=== PATIENT | male | born 2000 ===

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

== ENCOUNTER 2022-02-07 13:46 | Emergency (ER) | payer MEDICAID, SELFPAY ==
--- NOTE | ~2022-02-07 | XR_ITS ---
EXAMINATION: XR CHEST CLINICAL INFORMATION: Cough COMPARISON: None TECHNIQUE: 2 views of the chest were obtained. FINDINGS: The lungs are clear. No airspace consolidation, pleural effusion, or pneumothorax. The cardiomediastinal silhouette is within normal limits. No acute osseous injury. XR/XR chest 2V IMPRESSION: No acute pulmonary process.
[2022-02-07 13:50] VITALS: BP 153/88; PULSE 108; RESP 18; TEMP 37.2; O2SAT 100; BMI 30.2
--- NOTE | 2022-02-07 13:50 | ED.URI ---
HPI - URI/Sore Throat General Chief Complaint: Upper Respiratory Symptoms <QAMAR Silvestre Last Filed: 02/07/22 13:52> Stated Complaint: Cough, Headache <QAMAR Silvestre Last Filed: 02/07/22 13:52> Time Seen by Provider: 02/07/22 14:23 <QAMAR Silvestre Last Filed: 02/07/22 13:52> History of Present Illness HPI Narrative: patient complains of a mild dry cough a headache runny nose some congestion, may have had some wheezing yesterday but no shortness of breath today and he does have an inhaler at home if his asthma does act up Right now is no chest pain no shortness of breath no vomiting <QAMAR Taylor Last Filed: 02/08/22 12:03> Related Data Allergies/Adverse Reactions: Allergies Allergy/AdvReac Type Severity Reaction Status Date / Time No Known Allergies Allergy Verified 02/07/22 13:50 <QAMAR Silvestre Last Filed: 02/07/22 13:52> Review of Systems Review of Systems: positive for dry cough and runny nose Negatives are no fever no chills no confusion no fainting no feeling faint no headache no stiff neck no difficulty breathing or swallowing no chest pain no shortness of breath no sputum no abdominal pain no nausea vomiting or diarrhea no rash <QAMAR Taylor Last Filed: 02/08/22 12:03> Yes all other systems are reviewed and are negative <QAMAR Taylor Last Filed: 02/08/22 12:03> [facility] Past Medical History Source: nursing notes reviewed <QAMAR Taylor Last Filed: 02/08/22 12:03> Social History Social History: Social History Advance Directives: No Advance Directives Information Provided: No <QAMAR Silvestre Last Filed: 02/07/22 13:52> Physical Exam Vital Signs: Vital Signs: Last Vital Signs Temp 98.9 F 02/07/22 13:50 Pulse 108 H 02/07/22 13:50 Resp 18 02/07/22 13:50 BP 153/88 H 02/07/22 13:50 Pulse Ox 100 02/07/22 13:50 O2 Del Method 02/07/22 13:50 BMI result Body Mass Index 30.2 <QAMAR Silvestre - Last Filed: 02/07/22 13:52> Vital Signs: Last Vital Signs Temp 98.9 F 02/07/22 13:50 Pulse 108 H 02/07/22 13:50 Resp 18 02/07/22 13:50 BP 153/88 H 02/07/22 13:50 Pulse Ox 100 02/07/22 13:50 O2 Del Method 02/07/22 13:50 BMI result Body Mass Index 30.2 <QAMAR Taylor - Last Filed: 02/08/22 12:03> general appearance no distress Eyes no redness or discharge The sinuses nontender Pharynx no redness swelling or exudate membranes are moist Neck is supple Chest clear to auscultation bilateral Heart no murmur Abdomen soft nontender Extremities range of motion x4 Skin no rash Neuro gait and balance are normal, interaction expression and comprehension are normal cranial nerves 2-12 intact as tested motor 5/5 x4, sensation intact and symmetrical, cerebellar exam is normal <QAMAR Taylor - Last Filed: 02/08/22 12:03> Course Course Course Narrative: E- 13:51 - 21yoM c PMHx of asthma presenting to the ED with URIs complaints that started yesterday which includes intermittent headaches, generalized fatigue/malaise, sore throat cough and wheezing. Denies any other symptoms complaints or concerns at this time. Denies recent travel or sick contacts. Plan: Patient is stable. He will be sent back to the waiting room. COVID and influenza swab along with strep ordered at this time. <QAMAR Silvestre - Last Filed: 02/07/22 13:52> RME- 13:51 - 21yoM c PMHx of asthma presenting to the ED with URIs complaints that started yesterday which includes intermittent headaches, generalized fatigue/malaise, sore throat cough and wheezing. Denies any other symptoms complaints or concerns at this time. Denies recent travel or sick contacts. Plan: Patient is stable. He will be sent back to the waiting room. COVID and influenza swab along with strep ordered at this time. Strep test negative, COVID test negative, flu test negative, chest x-ray was normal At this time the patient has no shortness of breath and was comfortable throughout ER visit and is discharge diagnosis viral syndrome <QAMAR Taylor Last Filed: 02/08/22 12:03> Medical Decision Making Lab Data Labs: Lab Results 02/07/22 02/07/22 02/07/22 Range/Units 14:22 14:22 14:22 COVID-19 (ZEUS) Negative (Negative) COVID-19 Clin Com See Note Influenza Type A (BRIAN) Negative (Negative) Influenza Type B (BRIAN) Negative (Negative) Influenza A & B Note See Note S. pyogenes GrpA BRIAN Negative (Negative) <QAMAR Silvestre - Last Filed: 02/07/22 13:52> Lab Results 02/07/22 02/07/22 02/07/22 Range/Units 14:22 14:22 14:22 COVID-19 (ZEUS) Negative (Negative) COVID-19 Clin Com See Note Influenza Type A (BRIAN) Negative (Negative) Influenza Type B (BRIAN) Negative (Negative) Influenza A & B Note See Note S. pyogenes GrpA BRIAN Negative (Negative) <QAMAR Taylor - Last Filed: 02/08/22 12:03> Discharge Plan Discharge Clinical Impression: Acute viral syndrome <QAMAR Silvestre Last Filed: 02/07/22 13:52> Patient Disposition: Home, Self-Care <QAMAR Silvestre Last Filed: 02/07/22 13:52> Additional Instructions: testing for flu strep throat and COVID were negative Your x-ray did not show any pneumonia There is no sign of any dangerous illness now but you may be contagious Return any time any worse condition or any concerns You could get Tylenol or Motrin [id number] for any body aches or fever <QAMAR Silvestre - Last Filed: 02/07/22 13:52> Stand Alone Forms: Work/School Release <QAMAR Silvestre - Last Filed: 02/07/22 13:52> Interventions: ED Discharge Assessment Last Done: 02/07/22 16:45 <QAMAR Silvestre Last Filed: 02/07/22 13:52> Discharge Date/Time: 02/07/22 16:45 <QAMAR Silvestre Last Filed: 02/07/22 13:52>
[2022-02-07 14:46] LABS: Strep A Nucleic Acid Negative (Negative)
[2022-02-07 14:52] LABS: COVID-19 Test Negative (Negative); IDNOW Serial# 55D5AD1C
[2022-02-07 15:34] LABS: Influenza A Negative (Negative); Influenza B2 Negative (Negative)
== END 2022-02-07 16:45 | disposition home or self-care (01) ==
PROVIDERS: Physician Assistant Medical; Emergency Provider Emergency Medicine
DX: B34.9 Viral infection, unspecified (principal); Z20.822 Contact with and (suspected) exposure to COVID-19
CPT/HCPCS: 71046; 87502; 87635; 87651; 99283

== ENCOUNTER 2022-02-13 16:45 | Emergency (ER) | payer MEDICAID, SELFPAY ==
[2022-02-13 16:46] VITALS: BP 134/90; PULSE 91; RESP 18; TEMP 36.6; O2SAT 100; BMI 29.2
--- NOTE | 2022-02-13 16:47 | ED.GENADULT ---
HPI - General Adult General Chief complaint: Upper Respiratory Symptoms <QAMAR Hernandez - Last Filed: 02/13/22 16:50> Stated complaint: sore throat <QAMAR Hernandez - Last Filed: 02/13/22 16:50> Time Seen by Provider: 02/13/22 17:01 <QAMAR Hernandez - Last Filed: 02/13/22 16:50> Source: patient <Terrie Amin NP - Last Filed: 02/13/22 18:14> Mode of arrival: ambulatory <Terrie Amin NP - Last Filed: 02/13/22 18:14> Limitations: no limitations <Terrie Amin NP - Last Filed: 02/13/22 18:14> Related Data Home medications: Previous Rx's Medication Instructions Recorded amoxicillin 875 mg-potassium 1 tab PO Q12H 10 days #20 tabs 02/13/22 clavulanate 125 mg tablet <QAMAR Hernandez - Last Filed: 02/13/22 16:50> Allergies/adverse reactions: Allergies Allergy/AdvReac Type Severity Reaction Status Date / Time No Known Allergies Allergy Verified 02/07/22 13:50 <QAMAR Hernandez - Last Filed: 02/13/22 16:50> Review of Systems Review of Systems: Constitutional: No Fever, positive Chills, positive fatigue, positive Malaise ENT/Mouth: positive sore throat, positive runny nose Eyes: No Discharge Cardiovascular: No Chest Pain, No SOB Respiratory: Positive Cough, No Sputum, No Wheezing, No Dyspnea Gastrointestinal: No Nausea, No Vomiting, No Diarrhea Musculoskeletal: positive Myalgia Skin: No rash Neuro: No Headache <Terrie Amin NP - Last Filed: 02/13/22 18:14> Yes all other systems are reviewed and are negative <Terrie Amin NP - Last Filed: 02/13/22 18:14> PMF[facility] Past Medical History Attestation statement: The following information was validated with the patient. <Terrie Amin NP - Last Filed: 02/13/22 18:14> Source: old records reviewed <Terrie Amin NP - Last Filed: 02/13/22 18:14> Social History Social History: Social History Advance Directives: No Advance Directives Information Provided: Yes <QAMAR Hernandez - Last Filed: 02/13/22 16:50> Physical Exam ED Vital Signs: Vital Signs - 24 hr 02/13/22 16:46 Temperature 97.9 F Pulse Rate 91 Respiratory Rate 18 Blood Pressure 134/90 H Pulse Oximetry 100 Oxygen Delivery Method Room Air BMI result Body Mass Index 29.2 <QAMAR Hernandez - Last Filed: 02/13/22 16:50> Vital Signs - 24 hr 02/13/22 16:46 Temperature 97.9 F Pulse Rate 91 Respiratory Rate 18 Blood Pressure 134/90 H Pulse Oximetry 100 Oxygen Delivery Method Room Air BMI result Body Mass Index 29.2 <Terrie Amin NP - Last Filed: 02/13/22 18:14> Appearance: Alert. Oriented X3. Mild distress. Eyes: Pupils equal, round and reactive to light. ENT: Pharynx and uvula erythematous. Tonsils normal. Tympanic membranes intact. Neck: Normal inspection. Neck supple. Posterior and anterior cervical lymphadenopathy noted. No mastoid tenderness. CVS: Normal heart rate and rhythm. Pulses normal. Respiratory: No respiratory distress. Breath sounds normal. Abdomen: Soft and nontender. Skin: Skin warm and dry. Normal skin color. Normal skin turgor. Extremities: Well-balanced well coordinated. Neuro: No motor deficit. No sensory deficit. Cranial nerves 2-12 intact <Terrie Amin NP - Last Filed: 02/13/22 18:14> Course Course Course Narrative: RME - 21 yo male presenting to the ER for evaluation of sore throat that started yesterday. Decreased PO intake today due to the pain. +Dry cough as well. Voice sounds slightly raspy but not muffled. irritation of the uvula with generalized posterior erythema, no tonsillar swelling or exudate noted. VSS and exam otherwise unremarkable. Will check strep and viral PCR. <QAMAR Hernandez - Last Filed: 02/13/22 16:50> RME - 21 yo male presenting to the ER for evaluation of sore throat that started yesterday. Decreased PO intake today due to the pain. +Dry cough as well. Voice sounds slightly raspy but not muffled. irritation of the uvula with generalized posterior erythema, no tonsillar swelling or exudate noted. VSS and exam otherwise unremarkable. Will check strep and viral PCR. 21-year-old male presents with a recurrent sore throat, started yesterday. He had a sore throat and URI symptoms about 2 weeks ago which have resolved. He woke up yesterday and felt swollen in his neck and throat. He does have some irritation and erythema of the uvula and pharynx. His strep test is negative however clinically healed patient has positive in benefit from antibiotics considering this is a recurrent event. COVID RSV influenza test is pending. Patient would like to be discharged home. I will call with results. Will prescribe Augmentin. Patient understands supportive measures with alternating Tylenol and Motrin. Verbalized understanding of signs and symptoms indicating need for emergent intervention. Verbalized understanding agrees to plan of care discharge home. 18:11 patient flu positive. I did update patient on his results. <Terrie Amin NP - Last Filed: 02/13/22 18:14> Medications Administered Discontinued Medications Generic Name Dose Route Start Last Admin Trade Name Freq PRN Reason Stop Dose Admin Amoxicillin/Clavulanate Potassium 875 mg 02/13/22 17:19 02/13/22 18:01 Amoxicillin/Potassium Clav 875 Mg Tablet PO 02/13/22 17:20 875 mg ONCE ONE Administration Ibuprofen 600 mg 02/13/22 17:19 02/13/22 18:01 Ibuprofen 600 Mg Tablet PO 02/13/22 17:20 600 mg ONCE ONE Administration <QAMAR Hernandez - Last Filed: 02/13/22 16:50> Medications Administered Discontinued Medications Generic Name Dose Route Start Last Admin Trade Name Freq PRN Reason Stop Dose Admin Amoxicillin/Clavulanate Potassium 875 mg 02/13/22 17:19 02/13/22 18:01 Amoxicillin/Potassium Clav 875 Mg Tablet PO 02/13/22 17:20 875 mg ONCE ONE Administration Ibuprofen 600 mg 02/13/22 17:19 02/13/22 18:01 Ibuprofen 600 Mg Tablet PO 02/13/22 17:20 600 mg ONCE ONE Administration <Terrie Amin NP - Last Filed: 02/13/22 18:14> Medical Decision Making Differential Diagnosis Differential Diagnoses: The differential diagnosis associated with the presentation includes <Terrie Amin NP - Last Filed: 02/13/22 18:14> COVID, influenza, RSV, pharyngitis, tonsillitis, peritonsillar abscess, epiglottitis <Terrie Amin NP - Last Filed: 02/13/22 18:14> Admission/Observation Consideration of admission/observation: Escalation of care including admission/observation considered <Terrie Amin NP - Last Filed: 02/13/22 18:14> Admission is not considered for this patient <Terrie Amin NP - Last Filed: 02/13/22 18:14> Lab Data MDM Lab Attestation statement: I reviewed the patient's lab results. <Terrie Amin NP - Last Filed: 02/13/22 18:14> Labs: Lab Results 02/13/22 02/13/22 Range/Units 16:52 16:52 Influenza Type A (PCR) POSITIVE A (Negative) Influenza Type B (PCR) NEGATIVE (Negative) RSV RNA Qual (PCR) NEGATIVE (Negative) SARS-CoV-2 RNA (RT-PCR) NEGATIVE (Negative) S. pyogenes GrpA BRIAN Negative (Negative) <QAMAR Hernandez - Last Filed: 02/13/22 16:50> Lab Results 02/13/22 02/13/22 Range/Units 16:52 16:52 Influenza Type A (PCR) POSITIVE A (Negative) Influenza Type B (PCR) NEGATIVE (Negative) RSV RNA Qual (PCR) NEGATIVE (Negative) SARS-CoV-2 RNA (RT-PCR) NEGATIVE (Negative) S. pyogenes GrpA BRIAN Negative (Negative) <Terrie Amin NP - Last Filed: 02/13/22 18:14> External Record Review External record reviewed: Inpatient record <Terrie Amin NP - Last Filed: 02/13/22 18:14> Prescription Management I considered prescription management with: Pain Medication and Antibiotic <Terrie Amin NP - Last Filed: 02/13/22 18:14> Chronic Conditions Patient?s care impacted by: Hypertension <Terrie Amin NP - Last Filed: 02/13/22 18:14> Discharge Plan Discharge Clinical Impression: Pharyngitis <QAMAR Hernandez - Last Filed: 02/13/22 16:50> Patient Disposition: Home, Self-Care <QAMAR Hernandez - Last Filed: 02/13/22 16:50> Instructions: Pharyngitis (ED), Upper Respiratory Infection (ED) <QAMAR Hernandez - Last Filed: 02/13/22 16:50> Additional Instructions: You were evaluated for upper respiratory symptoms. We are treating you for pharyngitis with Augmentin 875 mg twice a day for the next 10 days. Please complete the entire course of this medication. Alternate Tylenol 650 mg every 6 hours and Motrin 600 mg every 6 hours as needed for pain or fever management. Your last dose of Motrin was given to you at 17:30. Consider taking Tylenol at 21:00 so you can take pain and fever control every 3 hours. Write down what time you take these medications to prevent accidental overdose. Drink plenty of fluids. COVID RSV influenza tests are pending. I will call you with your results. Thank you for choosing this emergency department for evaluation. Please follow-up with primary care physician as needed. Return to the emergency department for any new, concerning, or worsening symptoms. <QAMAR Hernandez - Last Filed: 02/13/22 16:50> Prescriptions: New amoxicillin-pot clavulanate 875-125 mg tablet 1 tab PO Q12H 10 Days Qty: 20 0RF <QAMAR Hernandez - Last Filed: 02/13/22 16:50> Stand Alone Forms: Work/School Release <QAMAR Hernandez - Last Filed: 02/13/22 16:50> Interventions: ED Discharge Assessment Last Done: 02/13/22 18:06 <QAMAR Hernandez - Last Filed: 02/13/22 16:50> Discharge Date/Time: 02/13/22 18:06 <QAMAR Hernandez - Last Filed: 02/13/22 16:50>
[2022-02-13 17:08] LABS: Strep A Nucleic Acid Negative (Negative)
[2022-02-13 17:39] LABS: Influenza A PCR POSITIVE (Negative); Influenza B PCR NEGATIVE (Negative); Resp Syncy Virus RNA Qual PCR NEGATIVE (Negative); SARS COV2 PCR INHOUSE NEGATIVE (Negative)
[2022-02-13] MEDS: Amoxicillin/Potassium Clav 875 MG TABLET PO (18:01)
[2022-02-13] MEDS: Ibuprofen 600 MG TABLET PO (18:01)
== END 2022-02-13 18:06 | disposition home or self-care (01) ==
PROVIDERS: Physician Assistant; Emergency Provider Emergency Medicine
DX: J02.9 Acute pharyngitis, unspecified (principal); Z20.822 Contact with and (suspected) exposure to COVID-19; Z79.899 Other long term (current) drug therapy
CPT/HCPCS: 0241U; 87651; 99283

== ENCOUNTER 2023-10-23 23:41 | Observation (INO) | payer MEDICAID, SELFPAY ==
--- NOTE | ~2023-10-23 | XR_ITS ---
EXAMINATION: XR CHEST CLINICAL INFORMATION: Chest pain COMPARISON: 02/07/2022 TECHNIQUE: Frontal view of the chest was obtained. FINDINGS: No significant abnormality is noted involving the heart, lungs, mediastinum, bony thorax or soft tissues. XR/XR chest 1V IMPRESSION: Unremarkable examination. Electronically signed by: Zana Lopez MD 10/24/2023 07:59 AM EDT RP
--- NOTE | 2023-10-23 23:46 | ECG_ITS ---
Test Reason : CHEST PAIN Blood Pressure : / mmHG Vent. Rate : 091 BPM Atrial Rate : 091 BPM P-R Int : 142 ms QRS Dur : 086 ms QT Int : 354 ms P-R-T Axes : 075 030 031 degrees QTc Int : 435 ms Normal sinus rhythm Normal ECG No previous ECGs available Referred By: Generic ED Physician Electronically Signed By:MICHAEL LYNCH
[2023-10-23 23:56] VITALS: BP 151/71; PULSE 82; RESP 16; TEMP 36.4; O2SAT 100; BMI 25.0
--- NOTE | 2023-10-24 | ECG_ITS ---
Test Reason : CHEST PAIN Blood Pressure : / mmHG Vent. Rate : 068 BPM Atrial Rate : 068 BPM P-R Int : 138 ms QRS Dur : 084 ms QT Int : 374 ms P-R-T Axes : 053 024 014 degrees QTc Int : 397 ms Normal sinus rhythm Normal ECG When compared with ECG of 23-OCT-2023 23:41, No significant change was found Referred By: Paulo Hernandez Electronically Signed By:MICHAEL LYNCH
[2023-10-24 00:15] LABS: Basophils Percent Auto 0.3 % (0-2); Eosinophils Absolute Auto 0.2 X10*3/uL (0.0-0.4); Eosinophils Percent Auto 1.2 % (0-4); Hematocrit 36.5 % (42.0-52.0); Hemoglobin 11.2 g/dl (14.0-18.0); Imm Gran Abs Auto 0.04 X10*3/uL (0.00-0.03); Imm Gran Pct Auto 0.3 % (0.0-0.4); Lymphocytes Absolute Auto 2.6 X10*3/uL (1.2-4.9); Lymphocytes Percent Auto 20.3 % (20-40); Mean Corpuscular HGB Conc 30.7 g/dl (31.0-36.0); Mean Corpuscular Hemoglobin 21.5 pg (27.0-33.0); Mean Corpuscular Volume 70.2 fL (80.0-98.0); Monocytes Absolute Auto 1.1 X10*3/uL (0.1-1.2); Monocytes Percent Auto 8.4 % (2-11); Neutrophils Absolute Auto 8.8 x10*3/uL (2.0-8.3); Neutrophils Percent Auto 69.5 % (45-73); PLT CLUMP 1; Red Cell Distribution Width 18.4 % (11.0-16.0); SCAN SMEAR FLAG 1
[2023-10-24 00:16] LABS: MANUAL DIFF FLAG NO; White Blood Count 12.6 X10*3/uL (4.8-10.8)
[2023-10-24 00:31] LABS: Troponin-I High Sensitivity 79.5 ng/L (<3.5-35.0)
[2023-10-24 00:37] LABS: Platelet Count 247 X10*3/uL (160-400)
[2023-10-24 00:40] LABS: Alanine Aminotransferase 26 U/L (0-40); Albumin Level 4.7 g/dL (3.5-5.0); Alkaline Phosphatase 174 U/L (39-117); Aspartate Amino Transferase 22 U/L (5-37); Bilirubin Total 0.3 mg/dL (0.0-1.0); Blood Urea Nitrogen 15 mg/dL (9-16); Calcium 9.8 mg/dL (8.4-10.2); Carbon Dioxide 21 mmol/L (22-29); Estimated Glomerular Filt Rate > 60; Glucose Random 102 mg/dL (60-115); Total Protein 8.4 g/dL (6.5-8.0)
[2023-10-24 00:54] LABS: Anion Gap 19 (12-20); Chloride 103 mmol/L (96-108); Potassium 3.5 mmol/L (3.3-5.1); Sodium 139 mmol/L (135-145)
--- NOTE | 2023-10-24 01:56 | ED_ITS ---
HPI - Chest Pain General Chief Complaint: Chest Pain Stated Complaint: heart racing, chest pains Time Seen by Provider: 10/24/23 01:51 Source: patient Mode of arrival: ambulatory Limitations: no limitations History of Present Illness ED Provider: fletcher MARTINEZ narrative: Patient no significant past medical history does history of substance abuse no family history of sudden cardiac noticed sharp pain with slight pressure in the mid chest radiating to left side of the chest since 17:00 got worse after playing basketball at 20:00 no history of similar pain in the past when patient is discharged home at 20:00 patient was anxious because of the pain in had palpitation no dizziness no passing out episode patient took ibuprofen prior to arrival for headache no history of cocaine use no relation of the pain with bleeding or positioning Related Data Previous Rx's ?Medication ?Instructions ?Recorded amoxicillin 875 mg-potassium 1 tab PO Q12H 10 days #20 tabs 02/13/22 clavulanate 125 mg tablet Allergies Allergy/AdvReac Type Severity Reaction Status Date / Time No Known Allergies Allergy Verified 10/23/23 23:57 Review of Systems 2 Review of Systems: Yes all other systems are reviewed and are negative [facility] Social History Social History Smoked in Last 30 Days: No Use of substances other than those prescribed or required for medical reasons: Yes Substance Use Type: Marijuana Advance Directives: No Advance Directives Information Provided: No Do you have a plan to hurt others: No Plan Physical Exam 2 Vital Signs: Vital Signs: Last Vital Signs Temp 98.4 F 10/24/23 05:27 Pulse 65 10/24/23 07:16 Resp 16 10/24/23 07:16 BP 147/72 H 10/24/23 07:16 Pulse Ox 100 10/24/23 07:16 O2 Del Method Room Air 10/24/23 07:16 BMI result Body Mass Index 25.0 Appearance: Alert. Oriented X3. No acute distress. Eyes: PERRLA, No Nystagmus ENT: Pharynx normal. Oral Mucosa moist Neck: Normal inspection. Neck supple. CVS: Normal heart rate and rhythm. Pulses normal. Respiratory: No respiratory distress. Equal air entry bilateral, no wheezing/rales/rhonchi Abdomen: Soft and nontender. Bowel sounds are present, no mass palpable, no CVA tenderness Skin: Skin warm and dry. Normal skin color. Normal skin turgor. Extremities: No lower extremity edema. No calf tenderness Neuro: Oriented X 3. No motor deficit. No sensory deficit.No cerebellar signs , cranial nerves II-XII intact Medications Administered Discontinued Medications Generic Name Dose Route Start Last Admin Trade Name Cesarq PRN Reason Stop Dose Admin Aspirin 162 mg 10/24/23 03:19 10/24/23 03:35 Aspirin Enteric Coated 81 Mg Tablet.Dr ROSS 10/24/23 03:20 162 mg ONCE ONE Administration Medical Decision Making Medical Decision Making [facility] Narrative: Patient with pericardial pain in 23 years old with no prior history patient complains of pain as a pressure which got worse after playing basketball EKG without any ischemic changes no findings of pericarditis troponin was elevated which was concern case discussed Dr. Cedeno who saw the EKG would like to evaluate the patient will do echo patient was given aspirin in the ER during stay in the ER pain relieved Differential Diagnosis Differential Diagnoses: The differential diagnosis associated with the presentation includes Pericarditis/myocarditis/myopathy/tachycardia/demand ischemia/PE Admission/Observation Consideration of admission/observation: Escalation of care including admission/observation considered Consult Healthcare Provider Management of the patient was discussed with: Hospitalist Lab Data [facility] Lab Attestation statement: I reviewed the patient's lab results. 10/24/23 00:03 10/24/23 00:03 Labs: Lab Results 10/24/23 10/24/23 10/24/23 Range/Units 00:03 02:12 05:08 WBC 12.6 H (4.8-10.8) X10*3/uL RBC 5.20 (4.60-5.80) X10*6/uL Hgb 11.2 L (14.0-18.0) g/dl Hct 36.5 L (42.0-52.0) % MCV 70.2 L (80.0-98.0) fL MCH 21.5 L (27.0-33.0) pg MCHC 30.7 L (31.0-36.0) g/dl RDW 18.4 H (11.0-16.0) % Plt Count 247 (160-400) X10*3/uL MPV Not Reportable Immature Gran % (Auto) 0.3 (0.0-0.4) % Neut % (Auto) 69.5 (45-73) % Lymph % (Auto) 20.3 (20-40) % Mccone % (Auto) 8.4 (2-11) % Eos % (Auto) 1.2 (0-4) % Baso % (Auto) 0.3 (0-2) % Lymph # (Auto) 2.6 (1.2-4.9) X10*3/uL Mccone # (Auto) 1.1 (0.1-1.2) X10*3/uL Eos # (Auto) 0.2 (0.0-0.4) X10*3/uL Baso # (Auto) 0.0 (0.0-0.2) X10*3/uL Abs Immat Gran (auto) 0.04 H (0.00-0.03) X10*3/uL Absolute Neuts (auto) 8.8 H (2.0-8.3) x10*3/uL Absolute Nucleated RBC 0.000 (0.0-0.012) X10*3/uL Nucleated RBC % (auto) 0.0 (0.0-0.2) /100WBC ESR 4 (0-15) MM/HR PT (11.1-13.3) SEC INR (0.9-1.1) APTT (26.0-36.8) SEC D-Dimer High Sensitivty NG/ML Hold Blue Top Sodium 139 (135-145) mmol/L Potassium 3.5 (3.3-5.1) mmol/L Chloride 103 (96-108) mmol/L Carbon Dioxide 21 L (22-29) mmol/L Anion Gap 19 (12-20) BUN 15 (9-16) mg/dL Creatinine 1.32 (0.5-1.4) mg/dL Estim Creat Clear Calc 77.0 Estimated GFR > 60 Random Glucose 102 (60-115) mg/dL Calcium 9.8 (8.4-10.2) mg/dL Total Bilirubin 0.3 (0.0-1.0) mg/dL AST 22 (5-37) U/L ALT 26 (0-40) U/L Alkaline Phosphatase 174 H (39-117) U/L Total Creatine Kinase 261 H (38-174) U/L Troponin I High Sens 79.5 H 60.1 H 37.3 H (<3.5-35.0) ng/L C-Reactive Protein 0.75 H (< or = 0.50) mg/dL Total Protein 8.4 H (6.5-8.0) g/dL Albumin 4.7 (3.5-5.0) g/dL Urine Opiates Screen Not Detected (Not Detect) Ur Buprenorphine Scrn Not Detected (Not Detect) ng/mL Ur Oxycodone Screen Not Detected (Not Detect) ng/mL Urine Methadone Screen Not Detected (Not Detect) ng/mL Urine Fentanyl Screen Not Detected (Not Detect) Ur Barbiturates Screen Not Detected (Not Detect) Ur Phencyclidine Scrn Not Detected (Not Detect) Ur Amphetamines Screen Not Detected (Not Detect) U Benzodiazepines Scrn Not Detected (Not Detect) Urine Cocaine Screen Not Detected (Not Detect) U Marijuana (THC) Screen Not Detected (Not Detect) 10/24/23 Range/Units 05:33 WBC (4.8-10.8) X10*3/uL RBC (4.60-5.80) X10*6/uL Hgb (14.0-18.0) g/dl Hct (42.0-52.0) % MCV (80.0-98.0) fL MCH (27.0-33.0) pg MCHC (31.0-36.0) g/dl RDW (11.0-16.0) % Plt Count (160-400) X10*3/uL MPV Immature Gran % (Auto) (0.0-0.4) % Neut % (Auto) (45-73) % Lymph % (Auto) (20-40) % Mccone % (Auto) (2-11) % Eos % (Auto) (0-4) % Baso % (Auto) (0-2) % Lymph # (Auto) (1.2-4.9) X10*3/uL Mccone # (Auto) (0.1-1.2) X10*3/uL Eos # (Auto) (0.0-0.4) X10*3/uL Baso # (Auto) (0.0-0.2) X10*3/uL Abs Immat Gran (auto) (0.00-0.03) X10*3/uL Absolute Neuts (auto) (2.0-8.3) x10*3/uL Absolute Nucleated RBC (0.0-0.012) X10*3/uL Nucleated RBC % (auto) (0.0-0.2) /100WBC ESR (0-15) MM/HR PT 12.7 (11.1-13.3) SEC INR 1.0 (0.9-1.1) APTT 31.8 (26.0-36.8) SEC D-Dimer High Sensitivty < 150 NG/ML Hold Blue Top Cancelled Sodium (135-145) mmol/L Potassium (3.3-5.1) mmol/L Chloride (96-108) mmol/L Carbon Dioxide (22-29) mmol/L Anion Gap (12-20) BUN (9-16) mg/dL Creatinine (0.5-1.4) mg/dL Estim Creat Clear Calc Estimated GFR Random Glucose (60-115) mg/dL Calcium (8.4-10.2) mg/dL Total Bilirubin (0.0-1.0) mg/dL AST (5-37) U/L ALT (0-40) U/L Alkaline Phosphatase (39-117) U/L Total Creatine Kinase (38-174) U/L Troponin I High Sens (<3.5-35.0) ng/L C-Reactive Protein (< or = 0.50) mg/dL Total Protein (6.5-8.0) g/dL Albumin (3.5-5.0) g/dL Urine Opiates Screen (Not Detect) Ur Buprenorphine Scrn (Not Detect) ng/mL Ur Oxycodone Screen (Not Detect) ng/mL Urine Methadone Screen (Not Detect) ng/mL Urine Fentanyl Screen (Not Detect) Ur Barbiturates Screen (Not Detect) Ur Phencyclidine Scrn (Not Detect) Ur Amphetamines Screen (Not Detect) U Benzodiazepines Scrn (Not Detect) Urine Cocaine Screen (Not Detect) U Marijuana (THC) Screen (Not Detect) Independent Interpretation I performed an independent interpretation of an: EKG Interpretation: Normal sinus rhythm heart rate 68 beats per minute normal interval normal axis no acute ST-T no acute ischemia Discharge Plan Discharge Clinical Impression: Chest pain, Elevated troponin Patient Disposition: Admitted As Inpatient Print Language: Thai
[2023-10-24 02:05] VITALS: BP 132/65; PULSE 77; RESP 18; TEMP 36.9; O2SAT 100
[2023-10-24 02:18] LABS: C Reactive Protein 0.75 mg/dL (< or = 0.50)
[2023-10-24 02:38] LABS: Erythrocyte Sedimentation Rate 4 MM/HR (0-15)
[2023-10-24 02:39] LABS: Troponin-I High Sensitivity 60.1 ng/L (<3.5-35.0)
[2023-10-24] MEDS: Aspirin Enteric Coated 81 MG TABLET.DR 162 MG PO (03:35)
[2023-10-24 05:27] VITALS: BP 140/70; PULSE 66; RESP 20; TEMP 36.9; O2SAT 100
[2023-10-24 05:29] LABS: Amphetamine Screen Urine Not Detected (Not Detect); Barbiturates, Urine Not Detected (Not Detect); Benzodiazepines Screen Urine Not Detected (Not Detect); Buprenorphine Scr Not Detected (Not Detect); Cannabinoid Screen Urine Not Detected (Not Detect); Cocaine Screen Urine Not Detected (Not Detect); Fentanyl, urine Not Detected (Not Detect); Methadone Screen, Urine Not Detected (Not Detect); Opiate Screen Urine Not Detected (Not Detect); Oxycodone Screen Urine Not Detected (Not Detect); Phencyclidine Screen Urine Not Detected (Not Detect)
[2023-10-24 05:33] LABS: Troponin-I High Sensitivity 37.3 ng/L (<3.5-35.0)
[2023-10-24 05:47] LABS: Prothrombin Time 12.7 SEC (11.1-13.3)
[2023-10-24 05:50] LABS: Partial Thromboplastin Time 31.8 SEC (26.0-36.8)
[2023-10-24 05:51] LABS: D Dimer High Sensitivity < 150 NG/ML
[2023-10-24 07:16] VITALS: BP 147/72; PULSE 65; RESP 16; O2SAT 100
--- NOTE | 2023-10-24 07:25 | PC.NURSE ---
patient a&ox3, vaa, monitor and storage bin tender sinus patt 60s, pt c/o 2/10 chest pain, rr equal/non labored, lungs clear, speaking in full sentenses, call ozuna within reach, will continue with plan of care.
--- NOTE | 2023-10-24 07:39 | PM.IMHP ---
History of Present Illness Date of Service: 10/24/23 Attending physician on admission: [facility] Chief Complaint: chest pain 23 year old male without any significant past medical history presented to the ED early this morning for evaluation of chest pain. He states he was stretching prior to playing basketball yesterday evening and developed midsternal chest tightness without any radiation or associated symptoms. Resolved spontaneously. Played basketball (which he does regularly) without difficulty. Upon returning home late last night chest pain recurred but was more severe radiating into the neck with associated headache and lightheadedness. No fevers, chills, recent illness, abd pain, reflux, n/v, sob, palpitations, syncope. Reports pain persisted so presented to the ED. No history of prior symptoms. No known personal or family cardiac history. No history of sudden cardiac in family. No recent travel. Denies etoh use, illicit drug use or cigarette smoking. Does report smoking MJ occassionally. Since arrival, mild hypertension 147/72, vitals otherwise stable. Mild leukocytosis 12.6. Chronic anemia. Ddimer undetectable. Renal function wnl. Lytes wnl. CPK 261. CRP 0.75. Trops 79.5 --> 60.1 -->37.3. EKG shows NSR, rate 68, no st/t wave abn. In the ED, given 162mg asa and IVF. Review of Systems Review of Systems: Yes all other systems are reviewed and are negative [facility] Medical History Anemia Social History Patient Tobacco Use Status: Never used Tobacco Smoked in Last 30 Days: No Use of substances other than those prescribed or required for medical reasons: Yes Substance Use Type: Marijuana Advance Directives: No Advance Directives Information Provided: No Do you have a plan to hurt others: No Plan Nutrition Risks: No Nutritional Risk Meds Allergies Allergy/AdvReac Type Severity Reaction Status Date / Time No Known Allergies Allergy Verified 10/23/23 23:57 Home Medications ?Medication ?Instructions ?Recorded ?Confirmed ?Last Taken ?Type No Known Home Meds 10/24/23 10/24/23 Unknown History Physical Exam Vital Signs and Narrative: Vital Signs: Last Vital Signs Temp 98.4 F 10/24/23 05:27 Pulse 65 10/24/23 07:16 Resp 16 10/24/23 07:16 BP 147/72 H 10/24/23 07:16 Pulse Ox 100 10/24/23 07:16 O2 Del Method Room Air 10/24/23 07:16 BMI result Body Mass Index 25.0 Constitutional - Awake and Alert, No apparent distress Eyes - PERRLA, EOMI Cardiovascular - S1S2, RRR, No edema Respiratory - Normal lung expansion, Normal respiratory effort, No respiratory distress, CTA bilaterally Gastrointestinal - NT / ND; +BS; No rebound or guarding Extremities - no calf tenderness bilaterally, no swelling Skin - Warm/Dry Neurological - Alert & oriented x3 Psychological - Appropriate affect Results Labs 10/24/23 00:03 10/24/23 00:03 Labs: Laboratory Results - last 24 hr 10/24/23 10/24/23 10/24/23 00:03 02:12 05:08 MCV 70.2 L MCH 21.5 L MCHC 30.7 L RDW 18.4 H Plt Count 247 MPV Not Reportable Immature Gran % (Auto) 0.3 Neut % (Auto) 69.5 Lymph % (Auto) 20.3 [place] % (Auto) 8.4 Eos % (Auto) 1.2 Baso % (Auto) 0.3 Lymph # (Auto) 2.6 [place] # (Auto) 1.1 Eos # (Auto) 0.2 Baso # (Auto) 0.0 Abs Immat Gran (auto) 0.04 H Absolute Neuts (auto) 8.8 H Absolute Nucleated RBC 0.000 Nucleated RBC % (auto) 0.0 ESR 4 PT INR APTT D-Dimer High Sensitivty Hold Blue Top Anion Gap 19 Estim Creat Clear Calc 77.0 Estimated GFR > 60 Random Glucose 102 Calcium 9.8 Total Bilirubin 0.3 AST 22 ALT 26 Alkaline Phosphatase 174 H Total Creatine Kinase 261 H Troponin I High Sens 79.5 H 60.1 H 37.3 H C-Reactive Protein 0.75 H Total Protein 8.4 H Albumin 4.7 Urine Opiates Screen Not Detected Ur Buprenorphine Scrn Not Detected Ur Oxycodone Screen Not Detected Urine Methadone Screen Not Detected Urine Fentanyl Screen Not Detected Ur Barbiturates Screen Not Detected Ur Phencyclidine Scrn Not Detected Ur Amphetamines Screen Not Detected U Benzodiazepines Scrn Not Detected Urine Cocaine Screen Not Detected U Marijuana (THC) Screen Not Detected 10/24/23 05:33 MCV MCH MCHC RDW Plt Count MPV Immature Gran % (Auto) Neut % (Auto) Lymph % (Auto) [place] % (Auto) Eos % (Auto) Baso % (Auto) Lymph # (Auto) [place] # (Auto) Eos # (Auto) Baso # (Auto) Abs Immat Gran (auto) Absolute Neuts (auto) Absolute Nucleated RBC Nucleated RBC % (auto) ESR PT 12.7 INR 1.0 APTT 31.8 D-Dimer High Sensitivty < 150 Hold Blue Top Cancelled Anion Gap Estim Creat Clear Calc Estimated GFR Random Glucose Calcium Total Bilirubin AST ALT Alkaline Phosphatase Total Creatine Kinase Troponin I High Sens C-Reactive Protein Total Protein Albumin Urine Opiates Screen Ur Buprenorphine Scrn Ur Oxycodone Screen Urine Methadone Screen Urine Fentanyl Screen Ur Barbiturates Screen Ur Phencyclidine Scrn Ur Amphetamines Screen U Benzodiazepines Scrn Urine Cocaine Screen U Marijuana (THC) Screen Assessment and Plan (1) Anemia: Status: Acute (2) Elevated troponin: Status: Acute (3) Chest pain: Status: Acute Plan 23 year old male without any significant past medical history to be observed for chest pain with elevated trops #Acute chest pain with elevated trops -trops 79-->60-->37. EKG non ischemic -Hold on ac. given asa in ed. continue 81mg daily -echo -cardiology consult -monitor on tele #Chronic anemia -h/h stable, above transfusion threshold -iron studies, hgb electropheresis pending -follow #Infected pustule R cheek with induration -po doxy bid #Acute leukocytosis -no sepsis dvt prophylaxis- low risk for dvt- scps and early ambulation full code Quality Stroke Does the patient have a stroke diagnosis?: No VTE Prior VTE?: No VTE Risk Level:: Medical - low VTE Device Contraindication: Treatment Not Indicated VTE Drug Contraindication: N/A - Med Ordered
[2023-10-24] MEDS: 0.9 % Sodium Chloride 1,000 ML 100 ML IVCONT ×2 (08:09→18:13)
--- NOTE | 2023-10-24 08:11 | PC.NURSE ---
ivf started per order
--- NOTE | 2023-10-24 08:28 | PHA.MEDREC ---
Pharmacy Consult ? Medication Reconciliation Pharmacy has completed the medication reconciliation.
[2023-10-24] MEDS: Doxycycline Monohydrate 100 MG CAPSULE PO ×2 (11:29→23:20)
--- NOTE | 2023-10-24 11:31 | PC.NURSE ---
pt medicated with po abx per order
[2023-10-24 12:00] VITALS: BP 131/61; PULSE 69; RESP 16; TEMP 36.8; O2SAT 98
[2023-10-24 14:30] LABS: Iron 23 mcg/dL (45-160); Percent Iron Saturation 6 % (15-50); Total Iron Binding Capacity 414 mcg/dL (228-428); Unsaturated Iron Binding 391 ug/dL
[2023-10-24 14:56] LABS: Ferritin 8 ng/mL (20-250)
[2023-10-24 16:47] VITALS: BP 151/68; PULSE 63; RESP 20; TEMP 36.4; O2SAT 100
[2023-10-24 17:00] VITALS: BMI 24.9
[2023-10-24] MEDS: Acetaminophen 325 MG TABLET 650 MG PO (18:13)
[2023-10-24 20:00] VITALS: BP 127/77; PULSE 72; RESP 20; TEMP 36.4; O2SAT 99
[2023-10-24] MEDS: Melatonin 3 MG TABLET 6 MG PO (23:20)
[2023-10-24] MEDS: 0.9 % Sodium Chloride Flush 3 ML SYRINGE IVFLUSH (23:20)
[2023-10-25] VITALS: BP 131/65; PULSE 60; RESP 20; TEMP 36.6; O2SAT 99
[2023-10-25 04:00] VITALS: BP 146/62; PULSE 64; RESP 20; TEMP 36.4; O2SAT 100
[2023-10-25] MEDS: 0.9 % Sodium Chloride 1,000 ML 100 ML IVCONT (06:20)
--- NOTE | 2023-10-25 07:00 | CA_ITS ---
Transthoracic Echocardiogram Patient (Last, First, Middle): Perico Sorensen M Gender: Male Date of : 2000 Age: 23 Procedure Date: 10/25/2023 Procedure Type: Transthoracic Echocardiogram Location: [facility] [place] Height: 165.1 cm Weight: 67.59 kg BSA: 1.75 m2 Heart Rate: bpm BP: 134 / 73 mmHg Metal Wire Technician: HERB Referring MD: Breana FOOTE Battery Assembler Dry Cell: Martínez Cedeno MD Symptoms: elevated trops Study Quality: Adequate, contrast ECG Rhythm: Sinus Conclusions: - Normal study Findings Procedure Information Contrast agent, definity, is being given per protocol without apparent complications. Left Ventricle Normal left ventricular size, thickness, and systolic function. The visually estimated ejection fraction is between 55-60%. Diastolic function is normal for age. Right Ventricle Normal right ventricular cavity size and systolic function. Atria Both atria are normal in size. There is no evidence of interatrial shunt. Aortic Valve Normal aortic valve structure and function. There is no aortic valve stenosis. There is no aortic valve regurgitation. Mitral Valve Normal mitral valve structure and function. There is trace mitral valve regurgitation. There is no mitral valve stenosis. Pulmonic Valve The pulmonic valve is normal. There is trace pulmonic valve regurgitation. Tricuspid Valve Normal tricuspid valve structure. There is trace tricuspid valve regurgitation. The right ventricular systolic pressure is normal. The right ventricular systolic pressure is 31 mmHg. Normal right atrial pressure. There is no evidence of pulmonary hypertension. Great Vessels All visible segments of the aorta are normal in size. The visualized portions of the pulmonary artery and branches are normal. Venous The inferior vena cava is normal in size and collapses greater than 50% with inspiration. Pericardium/Pleural There is no evidence of pericardial effusion. Prior Study Comparison No prior study available for comparison. Measurements 2D Linear Measurements IVSd: 0.68 0.6-0.9/0.6-1.0 cm LVIDd: 5.38 3.9-5.3/4.2-5.9 cm LVIDd Index: 3.07 2.4-3.2/2.2-3.1 cm/m2 LVIDs: 3.89 2.0-3.6 cm LVPWd: 0.90 0.7-1.1 cm LA Diam: 3.50 2.7-3.8/3.0-4.0 cm LAIDs Index: 2.00 1.5-2.3 cm/m2 LV Mass: 188.39 67-162/88-224 g LV Mass Index: 107.65 43-95/49-115 g/m2 LVOT Diam: 1.90 3.0+(-)1.3 cm 2D Systolic Function EF 4C: 50.90 >55% EF 2C: 58.50 >55% EF BiP: 54.60 >55% Mitral Valve MV Pk E: 1.33 MV PK A: 0.41 MV Decel Time: 195.00 E/A: 3.30 E'Lateral: 15.80 E'Medial: 11.10 E/E' Med: 12.00 E/E' Lat: 8.40 PHT: 57.00 MVA PHT: 3.86 Decel Ballard: 6.81 Aortic Valve AoV Pk Rigoberto: 1.41 AoV Mn Rigoberto: 1.01 AoV VTI: 0.33 AoV Pk Grad: 8.00 Aov Mn Grad: 5.00 SLIM Cont.VTI: 2.08 LVOT LVOT Pk Rigoberto: 1.03 LVOT Mn Rigoberto: 0.66 LVOT VTI: 0.24 LVOT Pk Grad: 4.00 LVOT Mn Grad: 2.00 LVOT Diam: 1.90 LVOT Area: 2.84 Diastolic Function MV Pk E: 1.33 MV Pk A: 0.41 E/A: 3.30 E'Medial: 11.10 E/E' Med: 12.00 E' Laterial: 15.80 E/E' Lat: 8.40 Right Ventricle TAPSE (mm): 24.30 TVS' Rigoberto: 12.20 Tricuspid Valve TR Pk Rigoberto: 2.40 TR Pk Grad: 23.00 RA Press: 8.00 RVSP: 31.00 Great Vessels Aorta Sinus of Valsalva: 2.88 2.0-3.[address] Ridge: 2.18 1.7-3.4 cm Ao Asc: 2.70 2.1-3.4 cm Updated in Other Vendor System with Status of Final Martínez Cedeno MD electronically signed on 10/25/2023 12:52:44 PM with status of Final
[2023-10-25 07:13] VITALS: BP 134/73; PULSE 58; RESP 18; TEMP 36.5; O2SAT 100
[2023-10-25 08:19] LABS: Anion Gap 13 (12-20); Blood Urea Nitrogen 10 mg/dL (9-16); Calcium 9.2 mg/dL (8.4-10.2); Carbon Dioxide 22 mmol/L (22-29); Chloride 109 mmol/L (96-108); Creatinine Clr Calc Pharmacy 125.4; Estimated Glomerular Filt Rate > 60; Glucose Random 76 mg/dL (60-115); Potassium 4.1 mmol/L (3.3-5.1); Sodium 140 mmol/L (135-145)
[2023-10-25] MEDS: Doxycycline Monohydrate 100 MG CAPSULE PO (10:16)
[2023-10-25] MEDS: Aspirin Enteric Coated 81 MG TABLET.DR PO (10:16)
[2023-10-25] MEDS: 0.9 % Sodium Chloride Flush 3 ML SYRINGE IVFLUSH (10:17)
--- NOTE | 2023-10-25 10:32 | MHC.CM.PN ---
JOSE RAMON 10/24. Pt self-care, lives at home with his and 2 year old son. Pts will transport him home at discharge. Pt educate on HCP, but declined at this time. Pt has no PCP, a local list of PCP's was given to pt.
--- NOTE | 2023-10-25 11:00 | P.DS_ITS ---
DS: Providers Provider Date of Service: 10/25/23 Date of admission: 10/24/23 10:10 Date of discharge: 10/25/23 Primary care physician: [facility] Consults: 10/24/23 07:42 Consult to Cardiology Routine Consulting Provider: [facility] Reason for consultation: elevated trops Has provider been notified: No DS: Diagnosis Discharge Diagnosis (1) Anemia: Status: Acute (2) Elevated troponin: Status: Acute (3) Chest pain: Status: Acute (4) Pericarditis: Status: Acute DS: Summary Hospital Course Hospital Course: 23 year old male without any significant past medical history presented to the ED early this morning for evaluation of chest pain. He states he was stretching prior to playing basketball yesterday evening and developed midsternal chest tightness without any radiation or associated symptoms. Resolved spontaneously. Played basketball (which he does regularly) without difficulty. Upon returning home late last night chest pain recurred but was more severe radiating into the neck with associated headache and lightheadedness. No fevers, chills, recent illness, abd pain, reflux, n/v, sob, palpitations, syncope. Reports pain persisted so presented to the ED. No history of prior symptoms. No known persona l or family cardiac history. No history of sudden cardiac in family. No recent travel. Denies etoh use, illicit drug use or cigarette smoking. Does report smoking MJ occassionally. Since arrival, mild hypertension 147/72, vitals otherwise stable. Mild leukocytosis 12.6. Chronic anemia. Ddimer undetectable. Renal function wnl. Lytes wnl. CPK 261. CRP 0.75. Trops 79.5 --> 60.1 -->37.3. EKG shows NSR, rate 68, no st/t wave abn. In the ED, given 162mg asa and IVF. Hospital Course Admitted to telemetry where monitor failed to demonstrate any acute dysrhythmia. 2D echo done in preliminary read by Cardiology as normal. After discussion with Cardiology feel this is pericarditis. At this point in time cardiology recommends DC to home on 2 weeks of Indocin 50 mg twice daily and omeprazole 20 mg twice daily. Cardiology will arrange outpatient follow-up Time Attestation Discharge Coordination Time (in mins): 35 Quality: Safe Use of Opioids Does Pt have an Active Cancer Diagnosis on the Problem List?: No Quality: Stroke Does the patient have a stroke diagnosis?: No Physical Exam Vital Signs: Vital Signs: Last Vital Signs Temp 97.7 F 10/25/23 07:13 Pulse 58 10/25/23 07:13 Resp 18 10/25/23 07:13 BP 134/73 10/25/23 07:13 Pulse Ox 100 10/25/23 07:13 O2 Del Method Room Air 10/25/23 07:13 BMI result Body Mass Index 24.9 Const: Other: Awake alert no acute distress Resp: Other: Clear to auscultation bilaterally no rales rhonchi or wheezes Cardio: Other: No S4; positive S1-S2; no S3 murmurs rubs gallops GI: Other: Soft nontender nondistended normoactive bowel sounds Extrem: Other: No edema bilaterally DS: Data Data Completed and Pending Labs on day of discharge: Laboratory Results - last 24 hr 10/24/23 10/25/23 00:03 06:11 Sodium 140 Potassium 4.1 Chloride 109 H Carbon Dioxide 22 Anion Gap 13 BUN 10 Creatinine 0.81 Estim Creat Clear Calc 125.4 Estimated GFR > 60 Random Glucose 76 Calcium 9.2 D Iron 23 L TIBC 414 % Saturation 6 L Unsat Iron Binding 391 Ferritin 8 L Discharge Plan Discharge Anticipated Discharge Date/Time: 10/25/23 10:52 Patient Disposition: Home, Self-Care Discharge Diagnosis: Pericarditis Referrals: [place],[facility] [Primary Care Provider] - 1 Week Discharge Medications: New doxycycline monohydrate 100 mg Capsule 100 mg PO Q12H Qty: 14 0RF indomethacin 50 mg capsule 50 mg PO BID Qty: 28 0RF Rx Instructions: administer with food or milk omeprazole 20 mg tablet,delayed release (DR/EC) 20 mg PO BID 14 Days Qty: 28 0RF Discharge Orders: Discharge Order (Routine); Ordered 10/25/23 Ordered By: Mateus Austin Diet: Advance to usual diet Activity on Discharge: As tolerated Stand Alone Forms: Patient Portal Discharge page Print Language: Azeri Care Plan Goals: Start indomethacin 50 mg twice a day for 2 weeks along with omeprazole 20 mg twice a day for 2 weeks Health Concerns: Cardiology will call you for a follow-up appointment Plan of Treatment: Follow up with the PCP next available Assessment: See discharge summary
--- NOTE | 2023-10-25 11:31 | MHC.CM.PN ---
Pt is medically cleared for discharge home self-care, pt has his own transportation home.
--- NOTE | 2023-10-25 11:52 | P.CONCA_ITS ---
History of Present Illness History of Present Illness Date of Service: 10/25/23 Requesting physician: Breana Lanier Consult reason: chest pain and troponin elevation Chief complaint: elevated troponina Narrative: I was consulted to see Perico in cardiology consultation today due to chest pain and mildly elevated troponin. He is a pleasant 23-year-old male with no significant past medical history active with no significant history of premature coronary artery disease or cardiovascular disease in his family came to the hospital with chest pain. He said on Wednesday evening he was playing his usual basketball that he does. Prior going to basketball had some minor chest discomfort across his chest. He then stretched and then went on to play basketball for about 3 hours. He said he was not extra competitive and did not work harder than he usually does. He went home and then had usual family time and around 10.30 pm he has started feeling chest discomfort which she describes as tightness across his chest and then subsequently radiated to his neck. He started feeling uncomfortable symptoms were not subsiding. He took Tylenol at home and then told his that he was coming to the hospital. He came to the hospital on 23:40 and continued to have discomfort, he was then given aspirin. He had initial troponin in the 70s. EKG did not show any significant changes. Subsequent troponins were downtrending. The pain is not clearly reproducible for him but he is very vague about it. He has also not worse with breathing or coughing. However this morning he still has minor discomfort. His CRP was minimally elevated. He denies any recent sick contacts but he is not sure. 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 He also noted to be anemic. He denies any exertional chest pain prior to that. He denies any drug use. U tox is negative. Review of Systems 2 Constitutional: Constitutional: Reports no additional constitutional complaints Eyes: Eyes: Reports no additional eye complaints Cardiovascular: Cardiovascular: Reports chest pain at rest, Denies chest pain with activity, Denies leg edema, Denies lightheadedness, Denies Loss of Consciousness, Denies palpitations and Denies dyspnea Respiratory: Respiratory: Denies cough, Denies pain on inspiration, Denies pain with cough, Denies dyspnea and Denies wheezing Gastrointestinal: Gastrointestinal: Reports no additional gastrointestinal complaints Genitourinary: Genitourinary: Reports no additional male genitourinary complaints Musculoskeletal: Musculoskeletal: Reports no additional musculoskeletal complaints Neurologic: Reports system reviewed and no additional complaints, except as documented Psychiatric: Psychiatric: Reports no additional psychiatric complaints Endocrine: Endocrine: Reports no additional endocrine complaints and Denies palpitations Allergic/Immunologic: Allergic/Immunologic: Denies wheezing PMFSH Past Medical History Medical History Anemia Social History Social History Household Members: Spouse and Children Housing: Apartment Do you presently have visiting nurse or other home services: No Patient Tobacco Use Status: Never used Tobacco Substance Use Type: Marijuana service: No Meds Allergies Allergy/AdvReac Type Severity Reaction Status Date / Time No Known Allergies Allergy Verified 10/23/23 23:57 Physical Exam 2 Vital Signs: Vital Signs: Last Vital Signs Temp 97.7 F 10/25/23 07:13 Pulse 58 10/25/23 07:13 Resp 18 10/25/23 07:13 BP 134/73 10/25/23 07:13 Pulse Ox 100 10/25/23 07:13 O2 Del Method Room Air 10/25/23 07:13 BMI result Body Mass Index 24.9 Const: General: cooperative, comfortable, no acute distress, well developed, alert, awake and Physically active Nutritional Appearance: average body habitus and well nourished Orientation/consciousness: patient oriented x3 Limitations: no limitations HEENT: Head: Yes normocephalic and Yes atraumatic Neck: Neck: Yes trachea midline, Yes supple and Yes no JVD Resp: Effort & Inspection: normal respiratory effort Auscultation: clear to auscultation bilaterally Cardio: Jugular venous distension: no JVD Palpation: normal PMI Rate: r egular rate Rhythm: regular rhythm Heart sounds: S1 normal heart sound present, S2 normal heart sound present, no click, no gallops, no murmurs and no rubs GI: Auscultation: normal bowel sounds Skin: General skin exam: no rashes or lesions noted Neuro: General: patient oriented x3 and no focal motor deficits Extrem: General: Yes no clubbing, cyanosis or edema Psych: Appearance: grossly normal Objective Labs and Meds 10/24/23 00:03 10/25/23 06:11 Lab results: Laboratory Results - last 24 hr 10/24/23 10/25/23 00:03 06:11 Sodium 140 Potassium 4.1 Chloride 109 H Carbon Dioxide 22 Anion Gap 13 BUN 10 Creatinine 0.81 Estim Creat Clear Calc 125.4 Estimated GFR > 60 Random Glucose 76 Calcium 9.2 D Iron 23 L TIBC 414 % Saturation 6 L Unsat Iron Binding 391 Ferritin 8 L EKG shows no significant ST elevation or depression. Assessment and Plan (1) Pericarditis: Status: Acute Patient presents with episode of chest pain with minimal troponin elevation minimal CRP elevation without any prodrome of viral illness, likelihood of acute coronary syndrome is extremely low. Reviewed his echocardiogram preliminary shows no wall motion abnormality preserved LV systolic function. Likelihood of pericarditis is high clinically. I would suggest giving him indomethacin 50 mg b.i.d. for 2 weeks with GI prophylaxis to treat his syndrome. Advised to avoid basketball or high-intensity sports for the next few weeks. Will set him up for treadmill stress test although likelihood myocardial ischemia is low in the near future after 2 weeks of treatment with indomethacin. Will follow up in the clinic in 4 weeks time. Thank you for allowing me to partake in his care Procedures Date of Service Date of Service: 10/25/23
[2023-10-26 13:38] LABS: Hematocrit 36.2 % (38.5-50.0); Hemoglobin 10.8 g/dL (13.2-17.1); MCH 20.9 pg (27.0-33.0); MCV 70.2 fL (80.0-100.0); RBC 5.16 Million/uL (4.20-5.80); RDW 17.1 % (11.0-15.0)
== END 2023-10-25 11:48 | disposition home or self-care (01) ==
LOC: HO.ED 10-24 07:50 → HO.EDOVER 10-24 10:16 → HO.IMC 10-24 15:04
PROVIDERS: Admitting Provider Physician Assistant; Emergency Provider Internal Medicine; Visit Provider Hospitalist
DX: I31.9 Disease of pericardium, unspecified (principal); D64.9 Anemia, unspecified; R79.89 Other specified abnormal findings of blood chemistry; R07.9 Chest pain, unspecified; R51.9 Headache, unspecified; D72.829 Elevated white blood cell count, unspecified; L08.9 Local infection of the skin and subcutaneous tissue, unspecified
CPT/HCPCS: 36415; 71045; 80048; 80053; 80307; 82550; 82728; 83020; 83540; 84484; 85014; 85018; 85025; 85041; 85379; 85610; 85652; 85730; 86140; 93005; 93306; 96360; 96361; 99222; 99285; Q9957

== ENCOUNTER 2023-10-24 10:10 | Outpatient (BNV) | payer MEDICAID, SELFPAY | END 2023-10-25 07:00 | PROVIDERS: Admitting Provider Physician Assistant; Emergency Provider Internal Medicine; Visit Provider Internal Medicine Cardiovascular Disease | DX: I36.1 Nonrheumatic tricuspid (valve) insufficiency (principal) | CPT/HCPCS: 93306 ==

== ENCOUNTER → 2023-10-24 10:10 | Outpatient (BNV) | payer MEDICAID, SELFPAY | PROVIDERS: Admitting Provider Physician Assistant; Emergency Provider Internal Medicine; Visit Provider Internal Medicine Cardiovascular Disease | DX: I31.9 Disease of pericardium, unspecified (principal) | CPT/HCPCS: 99222 ==

== ENCOUNTER → 2023-10-24 10:10 | Outpatient (BNV) | payer MEDICAID, SELFPAY | PROVIDERS: Admitting Provider Physician Assistant; Emergency Provider Internal Medicine; Visit Provider Hospitalist | DX: D64.9 Anemia, unspecified (principal); R79.89 Other specified abnormal findings of blood chemistry; R07.9 Chest pain, unspecified | CPT/HCPCS: 99222; 99239 ==

== ENCOUNTER → 2023-11-09 10:22 | Outpatient (REF) | payer MEDICAID, SELFPAY ==
--- NOTE | 2023-11-09 10:25 | CA_ITS ---
Acquisition Time: 2023-11-09 10:30:54 Total Exercise Time: 00:11:59 Test Indications: CP ELEVATED TROP Medications: INDOMETHACIN DOXYCYCLINE Protocol: TERESA Max HR: 190 BPM 95% of Pred: 199 BPM Max BP: 210/040 mmHG Max Work Load: 13.4 METS Exercise stress test exercise 11 min 59 sec of Teresa protocol achieivng 95% MPHR, with baseline 4/10 sharp chest disocmfort without change, with mild SOB, without arrhythmias, with max BP 210/40, without EKG changes. Test reviewed with Dr. Cedeno Referred By: Martínez Cedeno Overread By: Viky Petty
== END ==
LOC: HO.CARD 10:22
PROVIDERS: Visit Provider Internal Medicine Cardiovascular Disease
DX: R07.9 Chest pain, unspecified (principal); I31.9 Disease of pericardium, unspecified; R79.89 Other specified abnormal findings of blood chemistry
CPT/HCPCS: 93017

== ENCOUNTER → 2023-11-09 10:25 | Outpatient (BNV) | payer MEDICAID, SELFPAY | PROVIDERS: Visit Provider Nurse Practitioner | DX: R07.9 Chest pain, unspecified (principal); R06.02 Shortness of breath | CPT/HCPCS: 93016; 93018 ==

== ENCOUNTER 2023-11-29 12:54 | Outpatient (AMB) | payer MEDICAID, SELFPAY ==
[2023-11-29 12:55] VITALS: BP 118/74; PULSE 66; BMI 28.2
--- NOTE | 2023-11-29 12:55 | MHC.OFFVIS ---
Vital Signs 11/29/23 12:55 Height 5 ft 5 in Weight 169 lb 12.095 oz BMI 28.2 BP 118/74 Blood Pressure Location Lt brachial Position Sitting Pulse 66 Intake Visit Reasons: follow up after echo/stress/labs Intake Note: [facility] follow-up after echo , stress and labs feeling good Business Division Chair Required: No Allergies No Known Allergies Allergy (Verified 10/23/23 23:57) Medication List - Last Reconciled 11/29/23 by Martínez Cedeno MD No Known Home Meds HPI Comments Details: Perico comes for follow-up after recent hospitalization with chest pain which turned out to be pericarditis. He finished 2 week course of indomethacin. Since then he has been doing well. Subsequently he did have a treadmill stress test which was negative for ischemia at high workload. Echocardiogram did not show any significant LV systolic dysfunction. He has been doing well and he has been playing basketball again. [facility] Medical History Chest pain Anemia Social History Household Members: Spouse and Children Housing: Apartment Do you presently have visiting nurse or other home services: No Patient Tobacco Use Status: Never used Tobacco Substance Use Type: Marijuana service: No Review of Systems Const Denies chills, Denies fatigue, Denies fever(s), Denies frequent falls, Denies weakness, Denies weight gain and Denies weight loss Eyes Denies loss of vision ENT Denies dizziness Card Denies chest pain, Denies leg edema, Denies lightheadedness, Denies palpitations, Denies dyspnea, Denies dyspnea on exertion, Denies orthopnea and Denies other (loss of consciousness) Resp Denies cough, Denies dyspnea, Denies dyspnea on exertion and Denies wheezing GI Denies hematochezia and Denies change in stool character Denies dysuria and Denies urinary frequency Musc Denies abnormal gait, Denies muscle weakness, Denies numbness, Denies radiating pain into limb and Denies tingling Skin/Breast Denies nail changes and Denies rash Neuro Denies abnormal gait, Denies dizziness, Denies frequent falls, Denies loss of vision, Denies memory loss, Denies numbness, Denies tingling and Denies weakness Psych Denies depression and Denies memory loss Endo Denies fatigue and Denies palpitations Cecil/Lymph Reports easy bruising and Reports other (anemia) Aller/Immun Denies wheezing Physical Exam Vital Signs: Last Vital Signs Pulse 66 11/29/23 12:55 BP 118/74 11/29/23 12:55 BMI result Body Mass Index 28.2 Const General: cooperative, comfortable, no acute distress, well developed, alert, awake and well groomed Nutritional Appearance: well nourished Orientation/consciousness: patient oriented x3 Neck Neck: Yes trachea midline, Yes supple and Yes no JVD Resp Effort & Inspection: normal respiratory effort Auscultation: clear to auscultation bilaterally Cardio Jugular venous distension: no JVD Palpation: normal PMI Rate: regular rate Rhythm: regular rhythm Heart sounds: S1 normal heart sound present, S2 normal heart sound present, no click, no gallops and no murmurs GI Auscultation: normal bowel sounds Skin General skin exam: no rashes or lesions noted Neuro General: patient oriented x3 and no focal motor deficits Extrem General: Yes no clubbing, cyanosis or edema Assessment & Plan Assessment & Plan (1) Pericarditis: Code(s): I31.9 - Disease of pericardium, unspecified Category: Medical Plan: Patient presents for follow-up after hospital admission with chest pain suggestive of pericarditis. Since then he was treated with indomethacin has done well. He has had no recurrent symptoms. Clinically doing well. His cardiac testing is within normal limits. Good prognosis with this was discussed. No further cardiac workup is indicated at this point time. Will follow up in the clinic if need be. Thank you for allowing me to partake in his care Medications: Discontinued doxycycline monohydrate Discontinued Reason: Patient Completed Course 100 mg PO Q12H 14 caps 0RF indomethacin administer with food or milk Discontinued Reason: Patient Completed Course 50 mg PO BID 28 caps 0RF omeprazole Discontinued Reason: Patient Completed Course 20 mg PO BID 14 days 28 tabs 0RF Coding Level of Care Code Est Pt Level 3 (70769) Diagnoses Pericarditis I31.9
== END 2023-11-29 13:29 | disposition home or self-care (01) ==
PROVIDERS: Visit Provider Internal Medicine Cardiovascular Disease
DX: I31.9 Disease of pericardium, unspecified (principal)
CPT/HCPCS: 99213

== ENCOUNTER → 2023-11-29 12:54 | Outpatient (BNVA) | payer MEDICAID, SELFPAY | PROVIDERS: Visit Provider Internal Medicine Cardiovascular Disease | DX: I31.9 Disease of pericardium, unspecified (principal) | CPT/HCPCS: 99212 ==